=== PATIENT | female | born 1965 | race Two or more races ===

== ENCOUNTER 2019-09-29 20:01 | Emergency (ER) | payer OTHER ==
[~2019-09-29] VITALS: Ht 160 cm; Wt 77.1 kg
[2019-09-29] MEDS ORDERED: SITA25TA PO (20:13)
[2019-09-29] MEDS ORDERED: CEPH-570 PO (20:13)
[2019-09-29] MEDS ORDERED: LISI2.5T2 PO (20:13)
--- NOTE | 2019-09-29 20:18 | NUR ---
Fabien burger in [facility] - 09/29/19 at 2021 by [id number] Paged Epic panel. Waiting for DR Gould to call back
--- NOTE | 2019-09-29 20:20 | NUR ---
DR Mejia into eval patient.
[2019-09-29 20:43] LABS: BASOPHILS # (AUTO) 0.1 K/uL (0.0-8.0); BASOPHILS % (AUTO) 0.7 % (0.0-2.0); EOSINOPHILS # (AUTO) 0.1 K/uL (0.0-0.7); EOSINOPHILS % (AUTO) 1.4 % (0.0-7.0); HEMATOCRIT 43.3 % (31.2-41.9); HEMOGLOBIN 14.2 g/dL (10.9-14.3); LYMPHOCYTES # (AUTO) 2.4 K/uL (20.0-40.0); LYMPHOCYTES % (AUTO) 29.8 % (20.5-51.5); MEAN CORPUSCULAR HEMOGLOBIN 27.9 uug (24.7-32.8); MEAN CORPUSCULAR HGB CONC 33 g/dL (32.3-35.6); MEAN CORPUSCULAR VOLUME 85.1 fL (75.5-95.3); MONOCYTES # (AUTO) 0.5 K/uL (2.0-10.0); MONOCYTES % (AUTO) 6.6 % (0.0-11.0); NEUTROPHILS % (AUTO) 61.5 % (38.5-71.5); PLATELET COUNT (AUTO) 304 K/uL (179-408); RED BLOOD CELL COUNT(AUTO) 5.09 MIL/uL (3.63-4.92); WHITE BLOOD COUNT (AUTO) 8.2 K/uL (3.8-11.8)
[2019-09-29 20:47] LABS: CREATININE 0.8 mg/dL (0.6-1.3); POTASSIUM 4.5 mmol/L (3.5-5.1)
--- NOTE | 2019-09-29 21:23 | NUR ---
Patient discharged to home in stable condition. Written and verbal after care instructions given. Patient verbalizes understanding of instructions. Stressed follow up or return to ER for worsening s/s.
[2019-09-29 21:24] VITALS: BP 160/92
== END 2019-09-29 21:24 | disposition home or self-care (01) ==
LOC: ER 20:14
DX: F95.8 Other tic disorders (principal); R25.3 Fasciculation; E78.5 Hyperlipidemia, unspecified; E11.9 Type 2 diabetes mellitus without complications; Z79.84 Long term (current) use of oral hypoglycemic drugs; I10 Essential (primary) hypertension; Z79.899 Other long term (current) drug therapy
CPT/HCPCS: 36415; 84443; 85025; A4663

== ENCOUNTER 2023-02-03 01:13 | Emergency (ER) | payer OTHER ==
[~2023-02-03] VITALS: Ht 165.1 cm; Wt 76.2 kg
[~2023-02-03 01:13] MED LIST: CEPH-570 PO; LISI2.5T14 PO; SITA25TA PO
[2023-02-03] MEDS ORDERED: DEXAMETHASONE 0.5 MG/5 ML LIQ UDC PO ONE (03:15)
[2023-02-03] MEDS ORDERED: AMOXICILLIN-CLAVUL 875-125MG TABLET PO ONE (03:15)
[2023-02-03] MEDS ORDERED: AMOX-430 PO ×2 (03:20→03:29)
[2023-02-03] MEDS ORDERED: AMOXICILLIN-CLAVUL 875-125MG TABLET ONE (03:22)
[2023-02-03] MEDS ORDERED: DEXAMETHASONE 5 MG/5 ML LIQUID UDC ONE (03:22)
[2023-02-03 03:36] VITALS: BP 148/89; TEMP 97.8; O2SAT 99
== END 2023-02-03 03:36 | disposition left against medical advice (07) ==
LOC: ER 01:16
DX: S02.92XA Unspecified fracture of facial bones, initial encounter for closed fracture (principal); S05.11XA Contusion of eyeball and orbital tissues, right eye, initial encounter; S06.0X0A Concussion without loss of consciousness, initial encounter; E11.9 Type 2 diabetes mellitus without complications; E78.5 Hyperlipidemia, unspecified; Z79.2 Long term (current) use of antibiotics; Z79.899 Other long term (current) drug therapy; X58.XXXA Exposure to other specified factors, initial encounter; Y93.89 Activity, other specified; Y92.89 Other specified places as the place of occurrence of the external cause; Y99.8 Other external cause status
CPT/HCPCS: 99284; 70450; 70486; J8540

== ENCOUNTER 2023-02-05 11:22 | Emergency (ER) | payer OTHER ==
[~2023-02-05] VITALS: Ht 162.6 cm; Wt 81.6 kg
[~2023-02-05 11:22] MED LIST changes: +AMOX-430 PO
[2023-02-05 12:16] VITALS: BP 155/90; TEMP 98.5; O2SAT 99
== END 2023-02-05 12:17 | disposition home or self-care (01) ==
LOC: ER 11:24
DX: S00.83XA Contusion of other part of head, initial encounter (principal); H11.31 Conjunctival hemorrhage, right eye; E11.9 Type 2 diabetes mellitus without complications; E78.5 Hyperlipidemia, unspecified; Z98.890 Other specified postprocedural states; Z79.899 Other long term (current) drug therapy; X58.XXXA Exposure to other specified factors, initial encounter; Y93.89 Activity, other specified; Y92.89 Other specified places as the place of occurrence of the external cause; Y99.8 Other external cause status
CPT/HCPCS: A4606; A4663